=== PATIENT | female | born 1945 | race African-American/Black ===

== ENCOUNTER 2017-10-12 03:23 | Inpatient (IN) | payer MEDICARE ==
[~2017-10-12] VITALS: Ht 162.6 cm; Wt 90.8 kg
[2017-10-12 03:59] LABS: BASOPHILS # (AUTO) 0.04 x10^3/uL (0-0.1); BASOPHILS % (AUTO) 0 % (0-1); EOSINOPHILS # (AUTO) 0.24 x10^3/uL (0-0.4); EOSINOPHILS % (AUTO) 1 % (1-7); LYMPHOCYTES # (AUTO) 1.21 x10^3/uL (1-3.4); LYMPHOCYTES % (AUTO) 7 % (22-44); MD NO; MEAN CORPUSCULAR HEMOGLOBIN 31.7 pg (27.0-34.8); MEAN CORPUSCULAR HGB CONC 33.2 g/dL (32.4-35.8); MEAN CORPUSCULAR VOLUME 95.7 fL (80-100); MEAN PLATELET VOLUME 9.5 fL (7.4-10.4); MONOCYTES # (AUTO) 0.82 x10^3/uL (0.2-0.8); MONOCYTES % (AUTO) 5 % (2-9); NEUTROPHILS % (AUTO) 86 % (42-75); PLATELET COUNT 245 x10^3/uL (130-400); RED BLOOD COUNT 3.52 x10^6/uL (3.82-5.3); RED CELL DISTRIBUTION WIDTH 14.6 % (9.6-15.2)
[2017-10-12 04:11] LABS: ALANINE AMINOTRANSFERASE 10 U/L (12-78); ALBUMIN 3.9 g/dL (3.4-5.0); ANION GAP 7 mmol/L (5-15); CALCIUM 9.6 mg/dL (8.5-10.1); CHLORIDE 108 mmol/L (98-107); CREATININE 1.12 mg/dL (0.55-1.02)
[2017-10-12 04:14] LABS: TROPONIN I < 0.015 ng/mL (0.000-0.045)
[2017-10-12 04:16] LABS: ALKALINE PHOSPHATASE 100 U/L (45-117); BILIRUBIN,TOTAL 0.5 mg/dL (0.2-1.0); TOTAL PROTEIN 9.4 g/dL (6.4-8.2)
[2017-10-12 04:19] LABS: ACETONE, SERUM Negative (Negative)
[2017-10-12 05:08] LABS: CULTURE INDICATED? YES; MICROSCOPIC INDICATED
[2017-10-12] MEDS ORDERED: SODIUM CHLORIDE FLUSH 10ML SYR IVF ONE (05:30)
[2017-10-12] MEDS ORDERED: ONDANSETRON ODT 8 MG PO ONE (05:30)
[2017-10-12] MEDS ORDERED: SODIUM CHLORIDE 0.9% 1,000ML IVBOLUS ONE (05:30)
[2017-10-12] MEDS ORDERED: CEFTRIAXONE 1,000 MG in SODIUM CHLORIDE 0.9% 50 ML IV ONE (05:30)
[2017-10-12] MEDS ORDERED: CEFTRIAXONE PMX 1GM/50ML 50 ML ONE (05:44)
[2017-10-12] MEDS ORDERED: ONDANSETRON ODT 8 MG ONE (05:45)
[2017-10-12] MEDS ORDERED: FURO40TA6 PO (06:08)
[2017-10-12] MEDS ORDERED: CANA100T PO (06:08)
[2017-10-12] MEDS ORDERED: NS + 20MEQ KCL 1,000 ML IV SCH (07:34)
[2017-10-12 07:57] VITALS: BP 138/69
[2017-10-12] MEDS ORDERED: ENALAPRILAT 1.25 MG/ML, 2ML IVPush PRN (08:00)
[2017-10-12] MEDS ORDERED: ACETAMINOPHEN 325 MG TABLET PO PRN (08:00)
[2017-10-12] MEDS ORDERED: LABETALOL 5MG/ML, 20ML IVPush PRN (08:00)
[2017-10-12 08:37] LABS: FREE T4 (FREE THYROXINE) 0.96 ng/dL (0.76-1.46)
[2017-10-12 08:44] LABS: HEMOGLOBIN A1C 6.7 % (4.2-6.3)
[2017-10-12] MEDS ORDERED: MAGNESIUM SULFATE PMX 2GM/50ML 50 ML IV ONE (10:00)
[2017-10-12] MEDS ORDERED: GLUCAGON 1 MG IM PRN (10:00)
[2017-10-12] MEDS ORDERED: DEXTROSE 4 GM TAB.CHEW PO PRN (10:00)
[2017-10-12] MEDS ORDERED: DEXTROSE 50%, 50ML SYRINGE IVPush PRN (10:00)
[2017-10-12] MEDS ORDERED: OMNIPAQUE 350 MG/ML, 100ML BOTTLE ONE (10:01)
[2017-10-12] MEDS ORDERED: CARV-39 PO (10:44)
[2017-10-12] MEDS ORDERED: FELO5TAB PO (10:46)
[2017-10-12] MEDS ORDERED: LINA5TAB PO (10:59)
[2017-10-12] MEDS ORDERED: BENA40TA3 PO (10:59)
[2017-10-12] MEDS ORDERED: NYST1000 PO (10:59)
[2017-10-12] MEDS ORDERED: ALLO100T30 PO (10:59)
[2017-10-12] MEDS ORDERED: FLUT12AE INH (10:59)
[2017-10-12] MEDS ORDERED: OMEP-110 PO (10:59)
[2017-10-12] MEDS ORDERED: GLYB2.5T2 PO (10:59)
[2017-10-12] MEDS ORDERED: INSU100V8 SQ (10:59)
[2017-10-12] MEDS: INSULIN LISPRO 100 UNITS/ML, PEN SQ-INSULIN SCH ×3 (11:00→21:00)
[2017-10-12 12:49] VITALS: BP 134/68
[2017-10-12] MEDS: HEPARIN 5,000 UNITS/ML, 1ML SQ SCH ×2 (14:10→22:00)
[2017-10-12 19:20] VITALS: BP 129/73
[2017-10-12] MEDS: SODIUM CHLORIDE FLUSH 10ML SYR IVF SCH (21:00)
[2017-10-13 00:41] VITALS: BP 133/71
[2017-10-13] MEDS: CEFTRIAXONE 1,000 MG in SODIUM CHLORIDE 0.9% 50 ML IV SCH (05:15)
[2017-10-13] MEDS: HEPARIN 5,000 UNITS/ML, 1ML SQ SCH ×3 (05:35→21:36)
[2017-10-13 06:20] LABS: BASOPHILS # (AUTO) 0.04 x10^3/uL (0-0.1); BASOPHILS % (AUTO) 1 % (0-1); EOSINOPHILS # (AUTO) 0.16 x10^3/uL (0-0.4); EOSINOPHILS % (AUTO) 2 % (1-7); LYMPHOCYTES # (AUTO) 2.89 x10^3/uL (1-3.4); LYMPHOCYTES % (AUTO) 37 % (22-44); MD NO; MEAN CORPUSCULAR HGB CONC 32.8 g/dL (32.4-35.8); MEAN CORPUSCULAR VOLUME 97.5 fL (80-100); MEAN PLATELET VOLUME 9.9 fL (7.4-10.4); MONOCYTES # (AUTO) 0.44 x10^3/uL (0.2-0.8); MONOCYTES % (AUTO) 6 % (2-9); NEUTROPHILS # (AUTO) 4.18 x10^3/uL (1.8-6.8); NEUTROPHILS % (AUTO) 54 % (42-75); PLATELET COUNT 174 x10^3/uL (130-400); RED CELL DISTRIBUTION WIDTH 14.5 % (9.6-15.2)
[2017-10-13 06:23] LABS: CHLORIDE 110 mmol/L (98-107)
[2017-10-13 06:47] LABS: ANION GAP 8 mmol/L (5-15); CALCIUM 8.5 mg/dL (8.5-10.1)
[2017-10-13] MEDS: INSULIN LISPRO 100 UNITS/ML, PEN SQ-INSULIN SCH ×4 (07:00→21:00)
[2017-10-13 07:25] VITALS: BP 136/73
[2017-10-13] MEDS: SODIUM CHLORIDE FLUSH 10ML SYR IVF SCH ×2 (09:00→21:00)
[2017-10-13 12:27] VITALS: BP 160/71
[2017-10-13 19:30] VITALS: BP 148/77
[2017-10-13] MEDS ORDERED: CALCIUM CARBONATE 500 MG TAB.CHEW PO PRN (21:00)
[2017-10-14 01:48] VITALS: BP 137/74
[2017-10-14] MEDS: CEFTRIAXONE 1,000 MG in SODIUM CHLORIDE 0.9% 50 ML IV SCH (04:58)
[2017-10-14] MEDS: HEPARIN 5,000 UNITS/ML, 1ML SQ SCH ×2 (05:23→15:29)
[2017-10-14 07:01] VITALS: BP 158/81
[2017-10-14] MEDS: INSULIN LISPRO 100 UNITS/ML, PEN SQ-INSULIN SCH ×2 (08:00→11:00)
[2017-10-14] MEDS: SODIUM CHLORIDE FLUSH 10ML SYR IVF SCH (09:00)
[2017-10-14 09:11] LABS: ANION GAP 7 mmol/L (5-15); CALCIUM 8.9 mg/dL (8.5-10.1); CHLORIDE 109 mmol/L (98-107); CREATININE 0.95 mg/dL (0.55-1.02)
[2017-10-14 09:15] LABS: BASOPHILS # (AUTO) 0.04 x10^3/uL (0-0.1); BASOPHILS % (AUTO) 1 % (0-1); EOSINOPHILS # (AUTO) 0.19 x10^3/uL (0-0.4); EOSINOPHILS % (AUTO) 3 % (1-7); LYMPHOCYTES # (AUTO) 2.22 x10^3/uL (1-3.4); LYMPHOCYTES % (AUTO) 36 % (22-44); MD NO; MEAN CORPUSCULAR HEMOGLOBIN 31.3 pg (27.0-34.8); MEAN CORPUSCULAR HGB CONC 32.7 g/dL (32.4-35.8); MEAN CORPUSCULAR VOLUME 95.6 fL (80-100); MEAN PLATELET VOLUME 10.8 fL (7.4-10.4); MONOCYTES # (AUTO) 0.45 x10^3/uL (0.2-0.8); MONOCYTES % (AUTO) 7 % (2-9); NEUTROPHILS % (AUTO) 52 % (42-75); PLATELET COUNT 168 x10^3/uL (130-400); RED BLOOD COUNT 3.03 x10^6/uL (3.82-5.3); RED CELL DISTRIBUTION WIDTH 14.6 % (9.6-15.2)
[2017-10-14 12:35] VITALS: BP 176/72
[2017-10-14] MEDS ORDERED: CEFD300C37 PO (12:57)
[2017-10-14] MEDS ORDERED: TEMPLATE NON-FORMULARY MED. (Fluticasone Propionate (Flovent Hfa 110 Mcg/Inh) 1 PUFF) INH SCH (21:00)
[2017-10-14] MEDS ORDERED: ALLOPURINOL 100 MG TABLET PO SCH (21:00)
[2017-10-14] MEDS ORDERED: CARVEDILOL 25 MG TABLET PO SCH (21:00)
[2017-10-15] MEDS ORDERED: BENAZEPRIL 20 MG TABLET PO SCH (09:00)
[2017-10-15] MEDS ORDERED: TEMPLATE NON-FORMULARY MED. (Felodipine (Felodipine Er) 5 MG) PO SCH (09:00)
== END 2017-10-14 17:04 | disposition home or self-care (01) | DRG 872 ==
LOC: ED 05:44 → EDIP 06:34 → 3NW 07:42 → CCU 10-13 13:45 → 3NW 10-13 14:06
PROVIDERS: ADMIT Hospitalist; ATTEND Hospitalist
DX: A41.9 Sepsis, unspecified organism (principal); N17.9 Acute kidney failure, unspecified; S73.005A Unspecified dislocation of left hip, initial encounter; N39.0 Urinary tract infection, site not specified; N12 Tubulo-interstitial nephritis, not specified as acute or chronic; E11.65 Type 2 diabetes mellitus with hyperglycemia; I11.0 Hypertensive heart disease with heart failure; I50.9 Heart failure, unspecified; K21.9 Gastro-esophageal reflux disease without esophagitis; M10.9 Gout, unspecified; X58.XXXA Exposure to other specified factors, initial encounter; Y93.89 Activity, other specified; Y92.89 Other specified places as the place of occurrence of the external cause; Y99.8 Other external cause status
CPT/HCPCS: 36415; 71045; 74177; 80048; 80053; 81001; 82010; 82962; 83036; 83735; 83880; 84100; 84439; 84443; 84484; 85025; 87040; 87077; 87086; 87186; 93005; 93306; 96374; 99285; G0378; J0696; J1644; J3480; Q0162; Q9967; J1815; J3475; J7030